=== PATIENT | female | born 2005 | race African-American/Black ===

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

== ENCOUNTER 2025-01-18 20:33 | Emergency (ER) | payer MEDICAID ==
[~2025-01-18] VITALS: Ht 157.5 cm; Wt 81.2 kg
[~2025-01-18 20:33] MED LIST: CIPR-173 PO
[2025-01-18] MEDS: SULFAMETHOX W/TRIMETH(800/160MG) DS TAB PO ONE (21:05)
[2025-01-18] MEDS: ACETAMINOPHEN 325 MG TAB PO ONE (21:08)
--- NOTE | 2025-01-18 21:35 | ED.PDOC ---
History of Present Illness(SKN HPI Comments This patient is a 19-year-old female who arrives the ED today for evaluation of a bug bite to the lateral aspect of the right breast that was sustained a few days back in his worsened. Patient states she believes it was a spider bite but can not be certain. Patient arrives with a weeping wound to the right lateral breast. Additionally, patient asked for Suboxone as she is attempting to wean off of heroin. [facility] Patient was febrile and tachycardic at arrival. Patient states her tetanus is up-to-date. Chief Complaint: Insect Bite Time Seen by MD: 20:43 History of Present Illness: Nurses Notes Allergies: Coded Allergies: NO KNOWN ALLERGIES (Unverified , 06/19/18) Home Meds Active Scripts Ciprofloxacin Hcl (Cipro) 500 Mg Tab, 1 TAB PO BID for 10 Days, #20 TAB Prov:EDD DARDEN [facility] 08/26/24 Information Source: Patient, Friend Mode of Arrival: Ambulatory Severity: Moderate Timing: Days Duration: Since onset Prehospital treatment: None Location: Other (Lateral right breast) Mechanism: Insect Object: None Condition of Object: None Wound Type: Other (Insect bite) Tetanus: UTD Associated Signs and Symptoms: Fever, Redness, Swelling, Pus Past Medical History PAST MEDICAL HISTORY: Denies Surgical History: Denies all surgeries WALL COVERING CONTRACTOR History: No Pertinent WALL COVERING CONTRACTOR History Family History Family History: Unknown Social History Smoker: Non-Smoker Alcohol: Denies ETOH Use Drugs: Denies Drug Use Lives In: Home Constitutional: reports: fever; denies: chills, diaphoresis, fatigue, malaise, sweats, weakness, others EENTM: denies: blurred vision, double vision, ear bleeding, ear discharge, ear drainage, ear pain, ear ringing, eye pain, eye redness, hearing loss, mouth pain, mouth swelling, nasal discharge, nose bleeding, nose congestion, nose jeanette n, photophobia, tearing, throat pain, throat swelling, voice changes, others Respiratory: denies: cough, hemoptysis, orthopnea, SOB at rest, shortness of breath, SOB with excertion, stridor, wheezing, others Cardiovascular: denies: chest pain, dizzy spells, diaphoresis, Dyspnea on exertion, edema, irregular heart beat, left arm pain, lightheadedness, palpitations, PND, syncope, others Gastrointestinal: denies: abdomen distended, abdominal pain, blood streaked bowels, constipated, diarrhea, dysphagia, difficulty swallowing, hematemesis, melena, nausea, poor appetite, poor fluid intake, rectal bleeding, rectal pain, vomiting, others Genitourinary: denies: abnormal vagina bleeding, burning, dyspareunia, dysuria, flank pain, frequency, hematuria, incontinence, pain, , vagina discharge, urgency, others Neurological: denies: dizziness, fainting, headache, left sided numbness, left sided weakness, numbness, paresthesia, pre-existing deficit, right sided numbness, right sided weakness, seizure, speech problems, tingling, tremors, weakness, others Musculoskeletal: denies: back pain, gout, joint pain, joint swelling, muscle pain, muscle stiffness, neck pain, others Integumetry: reports: others (Insect bite to lateral right breast); denies: bruises, change in color, change in hair/nails, dryness, laceration, lesions, lumps, rash, wounds Allergic/Immunocompromised: denies: Difficulty Healing, Frequent Infections, Hives, Itching, others Hematologic/Lymphatic: denies: anemia, blood clots, easy bleeding, easy bruising, swollen glands, others Endocrine: denies: excessive hunger, excessive sweating, excessive thirst, excessive urination, flushing, intolerance to cold, intolerance to heat, unexplained weight gain, unexplained weight loss, others Psychiatric: denies: anxiety, bipolar disorder, depression, hopeless, panic disorder, schizophrenia, sleepless, suicidal, others Physical Exam General Appearance: Moderate Distress (Moderate distress due to anxiety related to her concerns.), Obese HEENT: Normal ENT Inspection, Pharynx Normal, TMs Normal Neck: Full Range of Motion, Non-Tender, Normal, Normal Inspection Respiratory: Chest Non-Tender, Lungs Clear, No Accessory Muscle Use, No Respiratory Distress, Normal Breath Sounds Cardiovascular: No Edema, No JVD, No Murmur, No Gallop, Normal Peripheral Pulses, Regular Rate/Rhythm Breast Exam: Deferred Gastrointestinal: No Organomegaly, Non Tender, No Pulsatile Mass, Normal Bowel Sounds, Soft Genitalia: Deferred Pelvic: Deferred Rectal: Deferred Extremities: No calf tenderness, Normal capillary refill, Normal inspection, Normal range of motion, Non-tender, No pedal edema Neurologic: Alert, No Motor Deficits, Normal Affect, Normal Mood, No Sensory Deficits Cerebellar Function: Normal Reflexes: Normal Skin: Other (Patient displays a half-dollar sized weeping abscess to the lateral aspect of the right breast. Localized erythema and edema. Patient has a large central port that does displays some drainage. No lymphangitis.) Lymphatic: No Adenopathy Was a procedure done? Was a procedure done?: No Differential Diagnosis (INTG) Differential Diagnosis: Cellulitis, Insect Envenomation X-Ray, Labs, Meds, VS Vital Signs Date Time Temp Pulse Resp B/P (MAP) Pulse Ox O2 Delivery O2 Flow Rate FiO2 01/18/25 21:08 102.6 01/18/25 20:34 102.2 126 16 116/57 98 102.2 Current Medications Medications (Trade) Dose Ordered Sig/Leighton Route Start Time Stop Time Status Last Admin Acetaminophen (Tylenol Tablet) 650 mg ONCE ONCE PO 01/18/25 20:45 01/18/25 20:46 DC 01/18/25 21:08 Trimethoprim/ Sulfamethoxazole (Bactrim Ds Tablet) 1 tab ONCE ONCE PO 01/18/25 21:00 01/18/25 21:01 DC 01/18/25 21:05 X-Ray, Labs, Meds, VS Comment Spent time discussing the concerns with the patient. Advise utilizing antibiotics as directed until completion as well as Tylenol as needed. Warm compresses no hotter than she would shower in. Time of 1ST Reevaluation: 21:38 Reevaluation 1ST: Improved Consultation: PCP Patient Education/Counseling: Diagnosis, Treatment Family Education/Counseling: Diagnosis, Treatment SEPSIS Sepsis Screen Date sepsis recognized/suspect: Jan 18, 2025 Time Sepsis recognized/suspect: 2038 Recent Procedure: No On Antibiotic Therapy: No Respiratory Rate >20: No Heart Rate >90: No Temp<36 C (96.8 F) or >38.3 C: No SBP <90 or MAP <65 mmHG: No New Acute Mental Status Change: No Is the patient on CPAP, BIPAP,: No Vital Signs Date Time Temp Pulse Resp B/P (MAP) Pulse Ox O2 Delivery O2 Flow Rate FiO2 01/18/25 21:08 102.6 01/18/25 20:34 102.2 126 16 116/57 98 102.2 Medications Medications Dose Ordered Sig/Leighton Route Start Time Stop Time Status Last Admin Dose Admin Acetaminophen 650 mg ONCE ONCE PO 01/18/25 20:45 01/18/25 20:46 DC 01/18/25 21:08 Trimethoprim/ Sulfamethoxazole 1 tab ONCE ONCE PO 01/18/25 21:00 01/18/25 21:01 DC 01/18/25 21:05 Departure 1 Departure Time of Disposition: 21:38 Impression: Primary Impression: Cellulitis Additional Impression: Insect bite Disposition: HOME / SELF CARE / HOMELESS Condition: Stable Additional Instructions: Advised patient utilize antibiotics as directed until completion as well as Tylenol as needed. Patient can utilize warm compresses no hotter than she would shower in. e-Prescriptions Ibuprofen (Ibuprofen) 600 Mg Tab 1 TAB PO Q6HP PRN, #20 TAB Prov: DANIEL MUHAMMAD PAC 01/18/25 Acetaminophen (Acetaminophen) 500 Mg Tab 500 MG PO Q4HP PRN, #30 TAB Prov: DANIEL MUHAMMAD [facility] 01/18/25 Sulfamethoxazole W/Trimethopri (Bactrim Ds Tablet) 1 Tab Tb 1 TAB PO BID for 7 Days, #14 TAB Prov: DANIEL MUHAMMAD PAC 01/18/25 Discharged With: Self, Relative Critical Care Note Critical Care Time?: No Stability Stability form required: No Heart Score Heart Score: Heart Score Response (Comments) Value History N/A 0 EKG N/A 0 Age N/A 0 Risk Factors N/A 0 Troponin N/A 0 Total 0 DANIEL MUHAMMAD PAC Jan 18, 2025 21:35
[2025-01-18] MEDS ORDERED: BACDST PO (21:40)
[2025-01-18] MEDS ORDERED: ACET500T58 PO (21:40)
[2025-01-18] MEDS ORDERED: IBUP-1454 PO (21:40)
[2025-01-18 22:10] VITALS: BP 105/66; PULSE 100; RESP 18; TEMP 99.9; O2SAT 97
== END 2025-01-18 22:14 | disposition home or self-care (01) ==
LOC: ER 20:37
DX: S20.161A Insect bite (nonvenomous) of breast, right breast, initial encounter (principal); W57.XXXA Bitten or stung by nonvenomous insect and other nonvenomous arthropods, initial encounter; Y93.89 Activity, other specified; Y92.89 Other specified places as the place of occurrence of the external cause; Y99.8 Other external cause status